=== PATIENT | female | born 1995 | race Caucasian/White ===

== ENCOUNTER 2020-08-01 23:35 | Emergency (ER) | payer OTHER ==
[~2020-08-01] VITALS: Ht 154.9 cm; Wt 49.9 kg
[~2020-08-01 23:35] MED LIST: LEVO500T6 PO; PROM25TA85 PO
[2020-08-01 23:45] VITALS: BP 111/75
--- NOTE | 2020-08-01 23:48 | NUR ---
TO LOBBY A/W BED AMBULATORY
--- NOTE | 2020-08-01 23:53 | NUR ---
SEEN AND EXAMINED BY ESA WITH ORDERS AND CARRIED OUT
[2020-08-01] MEDS ORDERED: KETOROLAC 30 MG/ML VIAL IM ONE (23:55)
[2020-08-01] MEDS ORDERED: PROCHLORPERAZINE 10 MG/2 ML VIAL IM ONE (23:55)
[2020-08-01] MEDS ORDERED: diphenhydrAMINE 50 MG/ML VIAL IM ONE (23:55)
--- NOTE | 2020-08-01 23:56 | NUR ---
RESULT BACK AND NOTED BY ERMD . FOR D/C
--- NOTE | 2020-08-02 00:01 | NUR ---
MEDICATED PER [facility] ORDER, PATIENT TOLERATED WELL.
[2020-08-02 00:20] VITALS: BP 111/75
--- NOTE | 2020-08-02 00:20 | NUR ---
Patient discharged with v/s stable. Written and verbal after care instructions given and explained. Patient verbalized understanding. Wheel Chair Assisted with by parent. All questions addressed prior to discharge. Advised to follow up with PMD.
== END 2020-08-02 00:20 | disposition other institution (70) ==
LOC: MED 23:35
DX: R51.9 Headache, unspecified (principal); Z79.899 Other long term (current) drug therapy
CPT/HCPCS: 81025; 96372; 99284; J0780; J1200; J1885